=== PATIENT | male | born 1940 | race Caucasian/White ===

== ENCOUNTER 2017-07-09 09:45 | Inpatient (IN) ==
--- NOTE | 2017-07-09 10:10 | PROVIDER DOCUMENTATION ---
HPI-Respiratory General - General Chief Complaint: Shortness of Breath Stated Complaint: CHEST PAIN Time Seen by Provider: 07/09/17 09:50 Source: patient Allergies/Adverse Reactions: Patient Allergies Allergy/AdvReac Type Severity Reaction Status Date / Time Sulfa (Sulfonamide Allergy Unknown Verified 07/09/17 09:52 Antibiotics) Home Medications: Home Medication List Medication Instructions Recorded Confirmed Last Taken Type Losartan Potassium 100 mg PO DAILY 06/04/16 07/09/17 Unknown History Simvastatin 40 mg PO DAILY 06/04/16 07/09/17 Unknown History Bisoprolol Fumarate/Hctz 1 each PO DAILY 07/09/17 07/09/17 Unknown History [Bisoprolol-Hctz 10-6.25 mg Tab] Hydrocodone Bit/Acetaminophen 1 each PO PRN PRN 07/09/17 07/09/17 Unknown History [Hydrocodon-Acetaminoph 7.5-325] - History of Present Illness-Resp Nature of Presenting Problem: patient is a 77 y/o M that presents to the ER with shortness of breath and edema x 4 to 5 days that has worsen. No history of CHF. Patient denies chest pain, cough. Worse with exertion and lying flat Quality of Pain: reports: tightness Severity in ED: reports: moderate, severe Onset/Duration: reports: gradual, 4 days ago, 5 days ago Timing: reports: still present, getting worse Context: denies: recent foreign travel, out of [facility] Cough Quality/Degree: reports: no cough Episode Frequency: no prior episodes Current Respiratory Medication Therapy: Initiated none Modifying Factors: worse with: exertion, lying down Associated Symptoms: reports: shortness of breath, sinus pain, other (edema). denies: cough, flu-like symptoms, nasal congestion, nasal drainage Similar Symptoms Previously?: No Recently seen or treated by another doctor?: No Review of Systems - Adult - REVIEW OF SYSTEMS - ADULT Constitutional: denies: chills, fever Eyes: reports: no symptoms reported Ears, Nose, Mouth & Throat: reports: no symptoms reported Cardiovascular: reports: edema, orthopnea. denies: chest pain, palpitations Respiratory: reports: shortness of breath. denies: cough, wheezing Gastrointestinal: denies: abdominal pain, diarrhea, nausea, vomiting Genitourinary: reports: no symptoms reported Musculoskeletal: reports: no symptoms reported Integumentary: reports: no symptoms reported Neurological: reports: no symptoms reported Psychiatric: reports: no symptoms reported Endocrine: reports: no symptoms reported Hematologic/Lymphatic: reports: no symptoms reported Allergic/Immunologic: reports: no symptoms reported All Other Systems: Reviewed and Negative Past History - Adult - PAST MEDICAL HISTORY-ADULT Review of Records: reports: Old Records Reviewed, Nursing Assessment Review, Medications Reviewed Cardiovascular: reports: HTN, hyperlipidemia Gastrointestinal: reports: cancer (colon) - PRIOR SURGERIES/PROCEDURES Surgical/Procedure History: reports: bowel surgery - IMMUNIZATION STATUS Childhood Immunizations: See Nurse Assessment Flu Vaccine: See Nurse Assessment - FAMILY HISTORY Family History: reviewed, not pertinent - SOCIAL HISTORY Smoking: non-smoker Substance Use: none/never Living Situation: family Physical Exam-General - PHYSICAL EXAM-ADULT Initial Vital Signs Reviewed: Yes - CONSTITUTIONAL General Appearance: alert, mild distress - EYES Eyes: PERRL/EOMI, pink conjunctivae - HEAD, EARS, NOSE, MOUTH & THROAT HENMT: normocephalic/atraumatic, moist mucous membranes, normal ENT inspection - NECK Neck: non-tender, full range of motion, normal inspection - RESPIRATORY Respiratory: no respiratory distress, no accessory muscle use, decreased breath sounds (at bases) - CARDIOVASCULAR Cardiovascular: other (irregular bradycardia). negative: friction rub - GASTROINTESTINAL (ABDOMEN) Abdominal Exam: normal bowel sounds, non tender, soft - MUSCULOSKELETAL Back Exam: other (parasacral edema). negative: muscle spasm Extremity: no calf tenderness, normal capillary refill, pelvis stable, pedal edema (4 plus pitting bilateral lower legs) - SKIN Integumentary: normal color, warm/dry - NEUROLOGIC Neurologic: controls engineer II-XII nml as tested, no motor/sensory deficits - PSYCHIATRIC Psych/Mental Status: normal mood/affect, normal thought content, normal thought process, oriented x 3 Progress - PLAN OF CARE/RESULTS Progress/Plan/Lab Results: Vital Signs - 8 hr 07/09/17 09:48 07/09/17 10:00 07/09/17 10:23 Pulse Rate 61 50 L 52 L Respiratory Rate 22 17 15 Blood Pressure 166/66 138/75 136/87 O2 Sat by Pulse Oximetry 97 96 97 07/09/17 10:24 Pulse Rate 51 L Respiratory Rate 18 Blood Pressure 132/77 O2 Sat by Pulse Oximetry 96 Laboratory Results - last 24 hr 07/09/17 07/09/17 07/09/17 10:00 10:00 10:00 WBC RBC Hgb Hct MCV MCH MCHC RDW Std Deviation Plt Count MPV Immature Gran % (Auto) Neut % (Auto) Lymph % (Auto) [place] % (Auto) Eos % (Auto) Baso % (Auto) Immature Gran # (Auto) Neut # (Auto) Lymph # (Auto) [place] # (Auto) Eos # (Auto) Baso # (Auto) PT INR APTT (Factor Assay) Sodium 140 Potassium 3.8 Chloride 103 Carbon Dioxide 26 Anion Gap 11 BUN 12 Creatinine 0.8 Estimated GFR/1.73 m2 > 60 BUN/Creatinine Ratio 15 Glucose 154 H Calculated Osmolality 282 Calcium 9.1 Magnesium 2.2 Total Bilirubin 0.80 AST 17 ALT 22 Alkaline Phosphatase 89 Creatine Kinase 148 Troponin T < 0.010 [id number] Pept 1093 H Total Protein 7.4 Albumin 4.4 Globulin 3.0 Albumin/Globulin Ratio 1.0 TSH 07/09/17 07/09/17 07/09/17 10:00 10:00 10:00 WBC 6.49 RBC 5.18 Hgb 15.6 Hct 47.5 MCV 91.7 MCH 30.1 MCHC 32.8 L RDW Std Deviation 14.9 H Plt Count 213 MPV 11.2 H Immature Gran % (Auto) 0.2 Neut % (Auto) 78.5 H Lymph % (Auto) 14.0 L [place] % (Auto) 6.5 Eos % (Auto) 0.5 Baso % (Auto) 0.3 Immature Gran # (Auto) 0.01 Neut # (Auto) 5.10 Lymph # (Auto) 0.91 L [place] # (Auto) 0.42 Eos # (Auto) 0.03 Baso # (Auto) 0.02 PT 13.7 INR 0.97 APTT (Factor Assay) 26.1 Sodium Potassium Chloride Carbon Dioxide Anion Gap BUN Creatinine Estimated GFR/1.73 m2 BUN/Creatinine Ratio Glucose Calculated Osmolality Calcium Magnesium Total Bilirubin AST ALT Alkaline Phosphatase Creatine Kinase Troponin T [id number] Pept Total Protein Albumin Globulin Albumin/Globulin Ratio TSH 1.07 Orders Category Date Time Status Cardiac Monitoring DIRECTED Care 07/09/17 10:05 Active Oxygen Therapy- ED Nursing DIRECTED Care 07/09/17 10:05 Active Saline Loc NOW Care 07/09/17 10:05 Active CHEST-2 VIEWS [RAD] Stat Exams 07/09/17 10:05 Completed CBC WITH ELECTRONIC DIFF [HEME] Stat Lab 07/09/17 10:00 Completed CK PROFILE [SP CHEM] Stat Lab 07/09/17 10:00 Completed COMPREHENSIVE METABOLIC PANEL [CHEM] Stat Lab 07/09/17 10:00 Completed MAGNESIUM [CHEM] Stat Lab 07/09/17 10:00 Completed PRO B-NATRIURETIC PEPTIDE Stat Lab 07/09/17 10:[address] Com[address]IME WITH INR PL [COAG] Stat Lab 07/09/17 10:[address] [COAG] Stat Lab 07/09/17 10:00 Completed TROPONIN T Stat Lab 07/09/17 10:00 Completed TSH Stat Lab 07/09/17 10:00 Completed EKG [EKG] Stat Ther 07/09/17 10:05 Draft Echo Spec/Color Dop W/O Contra Stat Ther 07/09/17 11:23 Ordered Result Diagrams: 07/09/17 10:00 07/09/17 10:00 - EKG 1 Time of EKG reading by physician:: 09:51 EKG Read and Signed by:: Owen Arreaga EKG Interpretation (*Must complete 3 of following elements*): Abnormal Rate: 63 Rhythm: a-fib with bradycardia QRS: normal ST Wave: normal - XRAY 1 XRAY Study: Chest Impression: Abnormal XRAY Interpretation: increased CMG, partial clearing of L basilar infitrate - CONSULTS/PCP/HOSPITALIST Notification #1 *Consult/PCP/Hospitalist*: ( aviation operations specialist for hospitalist) Time Discussed: 12:02 Consult Disposition: Will see in ED Departure - Departure Date of Disposition Decision: 07/09/17 Time of Disposition Decision: 12:02 DIAGNOSIS: New onset a-fib, New onset of congestive heart failure Dyspnea Qualifiers: Dyspnea type: shortness of breath Qualified Code(s): R06.02 - Shortness of breath Disposition: ADMITTED INPATIENT 09 Certified Medical Emergency: Emergent Condition: Stable Referrals and Follow-Ups: Marlon Fernandez MD [Primary Care Provider] - - Critical Care Note This patient required my direct & personal management of CC.: Yes Total Time (mins): 40 Critical Care Statement: This patient required my direct personal management to treat or rule out processes, the absence of which, could potentiallly result in sudden, clinically significant life or limb threatening deterioration. Attestation - Physician/ DANIELLE Attestation The physician spent face to face time with patient:: Yes Advanced Practice Provider documentation review:: Supervising physician onsite and consulted in the evaluation and care of this patient. The physician did have a face to face encounter with the patient.
[2017-07-09 10:11] LABS: MANUAL DIFF NEEDED? NO
[2017-07-09 10:13] LABS: BASO% 0.3 % (0.0-0.8); EOS# 0.03 X1000 (0.0-0.7); EOS% 0.5 % (0.0-10.0); HEMATOCRIT 47.5 % (42.0-52.0); HEMOGLOBIN 15.6 g/dL (14.0-18.0); IMM GRAN# 0.01 X1000 (0.0-0.04); IMM GRAN% 0.2 % (0.0-0.5); LYMPH# 0.91 X1000 (1.2-3.4); MCH 30.1 PG (27-31); MCHC 32.8 g/dL (33-37); MCV 91.7 FL (81-99); MONO# 0.42 X1000 (0.11-0.59); MONO% 6.5 % (1.7-9.3); MPV 11.2 FL (7.4-10.4); NEUT% 78.5 % (42.2-75.2); PLT 213 X1000 (130-400); RBC 5.18 XMIL (4.7-6.1)
--- NOTE | 2017-07-09 10:21 | EKG Report ---
Test Performed on : 07/09/2017 09:51:54 AM Test Reason : CHEST PAIN Blood Pressure : / mmHG Vent. Rate : 063 BPM Atrial Rate : 340 BPM P-R Int : 000 ms QRS Dur : 090 ms QT Int : 414 ms P-R-T Axes : 000 078 072 degrees QTc Int : 423 ms Atrial fibrillation. with a competing junctional pacemaker. Abnormal ECG When compared with ECG of 04-JUN-2016 02:43, Atrial fibrillation. has replaced Sinus rhythm. Nonspecific T wave abnormality now evident in Lateral leads Unconfirmed Result
[2017-07-09 10:24] LABS: INR 0.97 (0.86-1.15); PROTIME 13.7 Seconds (12.1-15.5)
[2017-07-09 10:25] LABS: AGAP 11; ALBUMIN 4.4 g/dL (3.5-5.0); ALKALINE PHOSPHATASE 89 U/L (32-122); BUN 12 mg/dL (8-22); CALCIUM 9.1 mg/dL (8.8-10.2); CHLORIDE 103 mmol/L (98-107); CK PROFILE 148 U/L (24-204); COSMO 282; GOT 17 U/L (10-34); GPT 22 U/L (10-44); MAGNESIUM 2.2 mg/dL (1.5-2.7); POTASSIUM 3.8 mmol/L (3.5-5.1); PTT PL 26.1 Seconds (22.6-43.9); SODIUM 140 mmol/L (136-145); TCO2 26 mmol/L (25-35); TOTAL PROTEIN 7.4 g/dL (6.3-8.3)
--- NOTE | 2017-07-09 10:47 | Diag Imaging Result Doc PS360 ---
EXAM: CHEST-2 VIEWS HISTORY: sob TECHNIQUE: PA and Lateral chest x-ray COMPARISON: 06/04/2016 FINDINGS: There is cardiomegaly increased from the prior study. . There is been some improvement in left basilar opacity suggesting partial clearing of a left basilar infiltrate. Pulmonary vasculature is not congested. No effusion or pneumothorax is identified. There is ankylosis of the thoracic spine. IMPRESSION: Increasing cardiomegaly. Partial clearing of left basilar infiltrate. Continued follow-up is recommended to document complete clearing. Electronically signed by Мария Cummings 07/09/2017 10:45 AM
--- NOTE | 2017-07-09 16:04 | HISTORY AND PHYSICAL ---
PRIMARY CARE PHYSICIAN: Dr. Fernandez. CHIEF COMPLAINT: Lower extremity edema and shortness of breath. HISTORY OF PRESENT ILLNESS: This is a 77-year-old gentleman with a history of hypertension and colon cancer status post colon resection. He presented to the emergency room complaining of 4-5 days of increasing shortness of breath with exertion, lower extremity edema and orthopnea. He did state that over the last 24 hours he has developed PND with about 45-60 degree orthopnea. He does feel getting chest tightness with exertion. Once he relaxes this does resolve. He denied any syncope, dizziness ,palpitations or any prior episodes similar to this. He has no prior diagnosis of heart failure. He was found to have a heart rate of 61 on arrival to the emergency room. His heart rate has over the last 2 hours gone down to the 40s with blood pressures in the 120s to 130s over 70s. EKG revealed atrial fib with competing junctional pacemaker, rate of 63. Chest x-ray revealed increasing cardiomegaly with no pulmonary vascular congestion. He is being admitted for further evaluation and treatment. PAST MEDICAL HISTORY: Colon cancer, hypertension, hyperlipidemia. PAST SURGICAL HISTORY: Colon resection. SOCIAL HISTORY: He denies alcohol, tobacco, or illicit drug use. He does live with his . He does have children close by that are very active in his care. ALLERGIES: Sulfa which causes an unknown reaction. HOME MEDICATIONS: Simvastatin 40 daily. Losartan 100 daily. [place] 7.5 p.r.n. Bisoprolol hydrochlorothiazide 10/6.25 daily. REVIEW OF SYSTEMS: A 14 point review of systems is discussed with patient with pertinent positives stated in HPI. He denied palpitations, dizziness, syncope, any cough, fever, chills, nausea, vomiting, diarrhea, constipation, black or bloody vomitus, black or bloody stools, hematuria, dysuria, frequency, urgency. PHYSICAL EXAMINATION: GENERAL: This is a 77-year-old male, who is sitting up in the bed, in no distress. VITAL SIGNS: Blood pressure is 132/77 with a heart rate of 43, respirations are 16, temperature is 97.4 degrees oral with O2 saturations of 96-97% on 2 L nasal cannula. HEENT: Head is normocephalic, atraumatic. Pupils equal, round, react to light. EOMs are intact. Sclerae are anicteric. Mucous membranes are moist. NECK: Supple. Trachea midline. CARDIOVASCULAR: Irregularly irregular rate and rhythm. Bradycardic. S1 and S2 appreciated. PULMONARY: He does have decreased breath sounds in the bases with no increased work of breathing noted. GASTROINTESTINAL: Abdomen is soft, nontender, nondistended. Bowel sounds in all 4 quadrants. EXTREMITIES: No clubbing or cyanosis. He does have lower extremity edema up to his just above his knees. He states this has gradually increased. His calves are nontender. Pulses are palpable x4. SKIN: Warm and dry. NEUROLOGIC: He is alert and oriented x3. Cranial nerves 2-12 grossly intact. DIAGNOSTICS: WBC is 6.4 with hemoglobin 15.6, hematocrit 47.5 and platelets of 213,000. Sodium is 140, potassium 3.8, BUN 12, creatinine 0.8, with a glucose of 154. Magnesium is 2.2. Troponin is less than 0.010 and TSH is 1.07. ASSESSMENT AND PLAN: 1. New onset atrial fibrillation. 2. Bradycardia. 3. Lower extremity edema. 4. Hypertension. 5. DVT prophylaxis. 6. GI prophylaxis. PLAN: He will be admitted to ICU for close monitoring. He will be placed on telemetry. We will give supplemental oxygen. We will consult Cardiology. We will obtain an echocardiogram. We will continue to trend troponins. Further treatments pending hospital course. Dictated by TYLER Guzman for Sean Chavira MD cc: TYLER Guzman MD
[2017-07-09] MEDS ORDERED: NORCO-7.5 PO PRN (20:25)
[2017-07-09] MEDS ORDERED: ZOCOR PO SCH (21:00)
[2017-07-10 12:43] VITALS: BP 164/88
--- NOTE | 2017-07-10 14:39 | ECHO REPORT ---
ORDER DATE: 07/09/2017 INTERPRETING PHYSICIAN: Dr. Juan Daniel Buchanan ECHOCARDIOGRAPHIC MEASUREMENTS: Interventricular septum: 1.4 cm. Left ventricular posterior wall: 1.1 cm. Diastolic diameter: 4.8 cm. Left atrium: cm. Aortic root: 3.2 cm. SUMMARY OF THE 2-DIMENSIONAL IMAGIN. Technically suboptimal study. Poor acoustic window. 2. Aortic valve leaflets were sclerosed, trileaflet opening normally. Pulmonic valve was normal. 3. Atrial fibrillation was noted. 4. Tricuspid valve was normal. 5. Normal left ventricular cavity size. Estimated ejection fraction of 60-65%. 6. There is left atrial enlargement. 7. There is mild mitral regurgitation. Trace to mild tricuspid regurgitation. Peak velocity across the tricuspid valve was 3 m/sec. Pulmonary artery systolic pressure 46-50 mmHg. 8. Peak velocity across the aortic valve less than 2 m/sec. By Doppler studies there is no aortic stenosis or regurgitation. 9. Technically suboptimal study. Poor acoustic window. 10. There is no pericardial effusion or obvious intracardiac mass or thrombus seen. cc: MD Owen Coleman MD
--- NOTE | 2017-07-13 11:10 | DISCHARGE SUMMARY ---
ADMISSION DATE: 07/09/2017 DISCHARGE DATE: 07/10/2017 DIAGNOSES: 1. New onset atrial fibrillation. 2. Bradycardia, resolved. 3. Lower extremity edema. 4. Hypertension. DIAGNOSTICS: Echocardiogram revealed an EF of 60% to 65% with a normal left ventricular cavity size with no pericardial effusion or obvious intracardiac mass or thrombus seen. Pulmonic valve and tricuspid valve were normal. Aortic valve was trileaflet with normal opening. There was trace to mild mitral regurgitation and tricuspid regurgitation. HOSPITAL COURSE: Mr. Aguiar presented to the emergency room complaining of increasing lower extremity edema and shortness of breath. He also had complained of PND with 45-60 degree orthopnea and increasing lower extremity edema. He was found to be in atrial fibrillation with heart rates that did drop down to the 40s. He did state that he had recently been started on a beta norma, I think it was bisoprolol/hydrochlorothiazide . Symptoms seemed to start shortly after this medication was started. We did hold beta blockers. Heart rate increased to the 60s and 70s. Blood pressures remained stable and at 120s-150s/60s-70s. He was seen by Dr. De La Cruz from cardiology who had been consulted, and on the morning of the , the patient stated that he needed to go home. He was going to go home AMA if he was not discharged. He had concerns over taking care of his as she is chronically ill. Therefore, Dr. Chavira did discharge the patient with instructions to call for an appointment to see Dr. Buchanan this week for further evaluation and testing. He was also instructed verbally, as well as written, not to take his beta norma. DISCHARGE PHYSICAL EXAMINATION: Cardiovascular: Irregularly irregular rate and rhythm. S1, S2 appreciated. Pulmonary: Breath sounds are clear. No increased work of breathing noted. Gastrointestinal: Abdomen is soft, nontender, nondistended. Bowel sounds in all 4 quadrants. Extremities: No clubbing cyanosis. He did continue with lower extremity edema which was somewhat less than on admission. Pulses were palpable x4. Calves nontender. Neurologic: Alert and oriented x3. DISCHARGE MEDICATIONS: 1. Simvastatin 40 mg daily. 2. Losartan 100 mg daily. 3. [place] 7.5/325 as directed. PLAN: 1. He was instructed to discontinue his bisoprolol/hydrochlorothiazide. 2. He is being discharged home in stable condition with family members. TIME SPENT: This is a greater than 30 minute discharge. Dictated by TYLER Guzman for Sean Chavira MD cc: TYLER Guzman MD
== END 2017-07-10 12:30 | disposition home or self-care (01) ==
LOC: P.ED 09:45 → P.MEDSURG 13:41 → P.ICU 15:06
PROVIDERS: ATTEND Family Medicine